=== PATIENT | female | born 1955 | race Caucasian/White ===

== ENCOUNTER 2022-02-10 07:14 | Outpatient (CLI) | payer MEDICARE, OTHER | END 2022-02-10 23:59 | disposition home or self-care (01) | LOC: LAB 07:14 | PROVIDERS: ATTEND Surgery | DX: Z01.812 Encounter for preprocedural laboratory examination (principal); Z20.822 Contact with and (suspected) exposure to COVID-19 ==

== ENCOUNTER 2022-02-12 06:42 | Day surgery (SDC) | payer MEDICARE, OTHER ==
[2022-02-12 07:14] LABS: HEMATOCRIT 38.4 % (31.2-41.9); MEAN CORPUSCULAR HEMOGLOBIN 28.3 uug (24.7-32.8); MEAN CORPUSCULAR VOLUME 82.9 fL (75.5-95.3); PLATELET COUNT (AUTO) 219 K/uL (179-408)
[2022-02-12 07:26] LABS: POTASSIUM 3.6 mmol/L (3.5-5.1)
[2022-02-12 07:30] LABS: *BILIRUBIN,URIN NEGATIVE (NEGATIVE); *BLOOD, URINE NEGATIVE (NEGATIVE); *CLARITY,URINE CLEAR (CLEAR); *COLOR,URINE YELLOW (YELLOW); *KETONES,URINE 1+ (NEGATIVE); *UROBILINOGEN,URINE 0.2 E.U./dl (NORMAL); LEUKOCYTE ESTERASE ,URINE 2+ (NEGATIVE); NITRITE, URINE NEGATIVE (NEGATIVE); UGLUCOSE NEGATIVE (NEGATIVE)
[2022-02-12] MEDS ORDERED: LIDOCAINE-MPF 2% 5 ML VIAL ONE (08:49)
[2022-02-12] MEDS ORDERED: PROPOFOL 200 MG/20 ML BOTTLE ONE (08:49)
[2022-02-12 12:09] LABS: BACTERIA,URINE FEW /HPF (NONE SEEN); RBC,URINE NONE SEEN /HPF (0-3); SQUAMOUS EPITHELIAL CELL,UR FEW /HPF (NONE SEEN)
== END 2022-02-12 09:30 | disposition home or self-care (01) ==
LOC: DS 06:42
PROVIDERS: ATTEND Surgery
DX: R19.4 Change in bowel habit (principal); K21.9 Gastro-esophageal reflux disease without esophagitis; R63.4 Abnormal weight loss; G89.29 Other chronic pain; R10.9 Unspecified abdominal pain; K63.89 Other specified diseases of intestine; K31.89 Other diseases of stomach and duodenum; K44.9 Diaphragmatic hernia without obstruction or gangrene; K29.50 Unspecified chronic gastritis without bleeding; E11.9 Type 2 diabetes mellitus without complications; E78.5 Hyperlipidemia, unspecified; F41.9 Anxiety disorder, unspecified; Z79.84 Long term (current) use of oral hypoglycemic drugs; Z79.899 Other long term (current) drug therapy; Z98.890 Other specified postprocedural states
CPT/HCPCS: 45380; 43239; 71045; 80048; 81001; 82962; 85025; 85730; 36415; 87040; J3490; J7040 ×2; A4663